=== PATIENT | female | born 1995 | race Caucasian/White ===

== ENCOUNTER → 2017-01-09 | Outpatient (CLI) | payer OTHER ==
[~2017-01-09] MED LIST: ACET-2723 PO; HYDR200T28 PO; SERT-88 PO
--- NOTE | 2017-01-10 15:29 | ECHOF ---
ECHOCARDIOGRAM DATE OF PROCEDURE January 09, 2017 This is a two-dimensional echo with spectral Doppler, color-flow and M-mode. It was obtained in a patient with chest pain and palpitations. Left atrial dimension is normal. Left ventricular end-diastolic dimension is normal. Left ventricular wall thickness is normal. LV systolic function is normal with ejection fraction of 67%. Right atrium is normal. Right ventricle is normal. Aortic root dimension is normal. Mitral, aortic, tricuspid, pulmonary valves are morphologically normal with trace of tricuspid regurgitation with normal estimated pulmonary artery systolic pressure of 18. There is no pericardial effusion. IMPRESSION Essentially normal echo with trivial tricuspid regurgitation. MTDD
== END ==
LOC: IMA 15:03
PROVIDERS: ATTEND Family Medicine
DX: R06.01 Orthopnea (principal); R00.2 Palpitations; R07.9 Chest pain, unspecified
CPT/HCPCS: 93306